=== PATIENT | male | born 1960 | race Caucasian/White ===

== ENCOUNTER 2023-03-29 23:48 | Inpatient (IN) | payer SELFPAY ==
[~2023-03-29] VITALS: Ht 175.3 cm; Wt 64.1 kg
[2023-03-30] MEDS ORDERED: METHYLPREDNISOLONE SOD SUCC 125MG/2ML (ACT-O-VIAL) IV STA (00:43)
[2023-03-30] MEDS ORDERED: IPRATROPIUM BROMIDE (0.02%) 0.5MG/2.5ML NEB HHN STA (00:43)
[2023-03-30] MEDS ORDERED: MAGNESIUM 2 G PREMIX 50 ML IV ONE (00:45)
[2023-03-30] MEDS: ALBUTEROL (0.083%) 2.5MG/3ML NEB HHN SCH ×2 (01:05→01:06)
[2023-03-30 01:07] VITALS: PULSE 79; RESP 20; O2SAT 98
[2023-03-30 01:42] LABS: HEMATOCRIT. 44.7 % (42.0-52.0); HEMOGLOBIN. 15.1 g/dL (14.0-18.0); MEAN CORPUSCULAR HEMOGLOBIN 30.9 pg (28.0-32.0); MEAN CORPUSCULAR VOLUME 91.3 fL (80.0-94.0); MEAN PLATELET VOLUME 7.9 fl (7.4-10.4); PLATELET 377 x1000/uL (130-400); RED BLOOD CELL COUNT 4.89 mill/uL (4.7-6.1); RED CELL DISTRIBUTION WIDTH 13.4 % (11.6-14.6)
[2023-03-30 01:51] LABS: CHLORIDE 109 mEq/L (98-107)
[2023-03-30 05:00] LABS: PLATELET ESTIMATE NORMAL
[2023-03-30] MEDS ORDERED: FUROSEMIDE 40MG/4ML VIAL IVP SCH (10:45)
[2023-03-30 12:00] VITALS: BP 143/71; PULSE 103; RESP 20; TEMP 98
[2023-03-30] MEDS ORDERED: ALBU90AE IH (13:00)
[2023-03-30] MEDS ORDERED: FURO40TA5 PO (13:00)
[2023-03-30] MEDS ORDERED: SERT-422 PO (13:00)
[2023-03-30] MEDS ORDERED: METO-385 PO (13:00)
[2023-03-30] MEDS ORDERED: IPRA3AMP31 IH (13:00)
[2023-03-30] MEDS ORDERED: METH4TAB17 PO (13:00)
[2023-03-30] MEDS ORDERED: ALBU05 IH (13:00)
[2023-03-30] MEDS ORDERED: LISI20TA31 PO (13:00)
[2023-03-30 13:13] VITALS: BP 143/71; PULSE 103; RESP 20; TEMP 98
[2023-03-30] MEDS: THROAT LOZENGES-BENZOCAINE/MENTH/CETYLPYRD CL LOZENGES MM PRN (15:18)
[2023-03-30 16:00] VITALS: BP 123/64; PULSE 109; RESP 18; TEMP 98.1
[2023-03-30] MEDS: PREDNISONE 10MG TABLET PO SCH (18:04)
[2023-03-30 20:00] VITALS: BP 114/65; PULSE 105; RESP 18; TEMP 97.2
[2023-03-31] VITALS (7 sets, daily range): BP systolic 114–141; BP diastolic 57–82; PULSE 86–113; RESP 18–20; TEMP 97.5–100.6; O2SAT 97
[2023-03-31] MEDS ORDERED: ACETAMINOPHEN 325MG TABLET PO PRN (00:15)
[2023-03-31] MEDS: PREDNISONE 10MG TABLET PO SCH ×2 (08:09→16:53)
[2023-03-31] MEDS ORDERED: FUROSEMIDE 20MG/2ML VIAL IVP SCH (09:00)
[2023-03-31] MEDS: THROAT LOZENGES-BENZOCAINE/MENTH/CETYLPYRD CL LOZENGES MM PRN (11:42)
[2023-03-31] MEDS: IPRATROPIUM/ALBUTEROL 0.5-3(2.5)MG/3ML NEB HHN SCH (14:05)
[2023-03-31] MEDS ORDERED: ALBU90AE IH (15:28)
[2023-03-31] MEDS ORDERED: SERT-422 PO (15:28)
[2023-03-31] MEDS ORDERED: MED4 MT (15:28)
[2023-03-31] MEDS ORDERED: METO-385 PO (15:28)
[2023-03-31] MEDS ORDERED: LISI20TA31 PO (15:28)
[2023-03-31] MEDS ORDERED: FURO40TA5 PO (15:28)
[2023-03-31 16:09] LABS: *AMPHETAMINES SCREEN URINE NEGATIVE (NEGATIVE); *BARBITURATES SCREEN URINE NEGATIVE (NEGATIVE); *BENZODIAZEPINES SCREEN URINE NEGATIVE (NEGATIVE); *COCAINE SCREEN URINE NEGATIVE (NEGATIVE); CANNABINOID URINE SCREEN NEGATIVE (NEGATIVE); METHADONE URINE SCREEN NEGATIVE (NEGATIVE); OPIATES URINE SCREEN NEGATIVE (NEGATIVE); PHENCYCLIDINE URINE SCREEN NEGATIVE (NEGATIVE)
== END 2023-03-31 17:45 | disposition home or self-care (01) | DRG 194 ==
LOC: ER 23:48 → 8WST 03-30 05:54 → EDBEDREQTM 03-30 06:05 → EDBEDREQ 03-30 06:05
PROVIDERS: ADMIT Internal Medicine; ATTEND Internal Medicine
DX: I11.0 Hypertensive heart disease with heart failure (principal); J96.01 Acute respiratory failure with hypoxia; S22.41XA Multiple fractures of ribs, right side, initial encounter for closed fracture; C14.0 Malignant neoplasm of pharynx, unspecified; D72.829 Elevated white blood cell count, unspecified; F17.210 Nicotine dependence, cigarettes, uncomplicated; I50.23 Acute on chronic systolic (congestive) heart failure; J43.9 Emphysema, unspecified; X58.XXXA Exposure to other specified factors, initial encounter; Z20.822 Contact with and (suspected) exposure to COVID-19; R74.01 Elevation of levels of liver transaminase levels; Z71.6 Tobacco abuse counseling; Z59.00 Homelessness unspecified; Y93.89 Activity, other specified; Y92.89 Other specified places as the place of occurrence of the external cause; Y99.8 Other external cause status
CPT/HCPCS: 36415; 71045; 80053; 80305; 83605; 83880; 84484; 85025; 87426; 93005; 93306; 93970; 94640; 99291; C9803; J1940; J2930; J3475; J7512

== ENCOUNTER 2023-04-11 09:55 | Inpatient (IN) | payer SELFPAY ==
[~2023-04-11] VITALS: Ht 175.3 cm; Wt 70.3 kg
[~2023-04-11 09:55] MED LIST: ALBU05 IH; ALBU90AE IH; FURO40TA5 PO; IPRA3AMP31 IH; LISI20TA31 PO; MED4 MT; METO-385 PO; SERT-422 PO
[2023-04-11] MEDS ORDERED: IPRATROPIUM BROMIDE (0.02%) 0.5MG/2.5ML NEB HHN STA (10:31)
[2023-04-11] MEDS ORDERED: ALBUTEROL (0.083%) 2.5MG/3ML NEB HHN STA (10:31)
[2023-04-11 10:37] LABS: HEMATOCRIT. 47.2 % (42.0-52.0); HEMOGLOBIN. 15.9 g/dL (14.0-18.0); MEAN CORPUSCULAR HEMOGLOBIN 30.7 pg (28.0-32.0); MEAN CORPUSCULAR VOLUME 90.9 fL (80.0-94.0); MEAN PLATELET VOLUME 7.5 fl (7.4-10.4); PLATELET 494 x1000/uL (130-400); RED BLOOD CELL COUNT 5.19 mill/uL (4.7-6.1); RED CELL DISTRIBUTION WIDTH 13.9 % (11.6-14.6)
[2023-04-11 10:49] LABS: CHLORIDE 109 mEq/L (98-107)
[2023-04-11 11:00] LABS: ETHANOL BLOOD < 10 mg/dL (-10)
[2023-04-11 11:20] VITALS: PULSE 92; RESP 20; O2SAT 99
[2023-04-11] MEDS ORDERED: METHYLPREDNISOLONE SOD SUCC 125MG VIAL IV NR (12:00)
[2023-04-11] MEDS ORDERED: GUAIFENESIN 600MG ER TABLET PO NR (12:30)
[2023-04-11 14:05] VITALS: BP 138/74; PULSE 101; RESP 20; TEMP 97.7
[2023-04-11] MEDS ORDERED: ONDANSETRON HCL 4MG/2ML INJ IV PRN (16:00)
[2023-04-11] MEDS: METHYLPREDNISOLONE SOD SUCC 40MG VIAL IV SCH (16:00)
[2023-04-11 19:56] VITALS: PULSE 112; RESP 16; O2SAT 97
[2023-04-11] MEDS: IPRATROPIUM/ALBUTEROL 0.5-3(2.5)MG/3ML NEB HHN SCH (19:56)
[2023-04-11 20:00] VITALS: BP 138/78; PULSE 113; RESP 21; TEMP 98.2
[2023-04-11] MEDS: THROAT LOZENGES-BENZOCAINE/MENTH/CETYLPYRD CL LOZENGES MM PRN (20:14)
[2023-04-11 23:33] LABS: PLATELET ESTIMATE INCREASED
[2023-04-12] VITALS (9 sets, daily range): BP systolic 106–116; BP diastolic 51–67; PULSE 85–123; RESP 15–24; TEMP 97.5–99.5; O2SAT 92–98
[2023-04-12] MEDS: METHYLPREDNISOLONE SOD SUCC 40MG VIAL IV SCH ×3 (00:22→15:36)
[2023-04-12] MEDS: THROAT LOZENGES-BENZOCAINE/MENTH/CETYLPYRD CL LOZENGES MM PRN ×3 (00:24→17:15)
[2023-04-12] MEDS: IPRATROPIUM/ALBUTEROL 0.5-3(2.5)MG/3ML NEB HHN SCH ×4 (01:32→20:38)
[2023-04-12] MEDS: GUAIFENESIN-DM 200MG-20MG/10ML UDC PO PRN ×3 (03:41→17:15)
[2023-04-12 13:20] LABS: HEMATOCRIT. 44.7 % (42.0-52.0); HEMOGLOBIN. 14.7 g/dL (14.0-18.0); MEAN CORPUSCULAR HEMOGLOBIN 30.1 pg (28.0-32.0); MEAN CORPUSCULAR VOLUME 91.4 fL (80.0-94.0); MEAN PLATELET VOLUME 7.7 fl (7.4-10.4); PLATELET 503 x1000/uL (130-400); RED BLOOD CELL COUNT 4.89 mill/uL (4.7-6.1); RED CELL DISTRIBUTION WIDTH 13.9 % (11.6-14.6)
[2023-04-12 13:26] LABS: CHLORIDE 105 mEq/L (98-107)
[2023-04-12 14:13] LABS: PLATELET ESTIMATE INCREASED
[2023-04-13] VITALS (10 sets, daily range): BP systolic 104–139; BP diastolic 46–71; PULSE 80–102; RESP 17–20; TEMP 97.7–98.6; O2SAT 93
[2023-04-13] MEDS: GUAIFENESIN-DM 200MG-20MG/10ML UDC PO PRN ×3 (00:46→15:31)
[2023-04-13] MEDS: IPRATROPIUM/ALBUTEROL 0.5-3(2.5)MG/3ML NEB HHN SCH ×4 (01:54→21:21)
[2023-04-13] MEDS: THROAT LOZENGES-BENZOCAINE/MENTH/CETYLPYRD CL LOZENGES MM PRN ×2 (08:49→15:31)
[2023-04-13] MEDS: METHYLPREDNISOLONE SOD SUCC 40MG VIAL IV SCH ×4 (08:50→23:50)
[2023-04-13] MEDS ORDERED: METO-385 PO (12:26)
[2023-04-13] MEDS ORDERED: SERT-422 PO (12:26)
[2023-04-13] MEDS ORDERED: ALBU05 IH (12:26)
[2023-04-13] MEDS ORDERED: FURO40TA5 PO (12:26)
[2023-04-13] MEDS ORDERED: IPRA3AMP31 IH (12:26)
[2023-04-13] MEDS ORDERED: ALBU90AE IH (12:26)
[2023-04-13] MEDS ORDERED: MED4 MT (12:26)
[2023-04-13] MEDS ORDERED: LISI20TA31 PO (12:26)
[2023-04-13] MEDS: ACETAMINOPHEN 325MG TABLET PO PRN (20:32)
[2023-04-14] VITALS (10 sets, daily range): BP systolic 123–137; BP diastolic 62–75; PULSE 78–111; RESP 18–20; TEMP 97.3–98.6
[2023-04-14] MEDS: IPRATROPIUM/ALBUTEROL 0.5-3(2.5)MG/3ML NEB HHN SCH ×4 (01:04→21:02)
[2023-04-14] MEDS: METHYLPREDNISOLONE SOD SUCC 40MG VIAL IV SCH ×3 (10:06→23:43)
[2023-04-14] MEDS: GUAIFENESIN-DM 200MG-20MG/10ML UDC PO PRN (21:12)
[2023-04-14] MEDS: THROAT LOZENGES-BENZOCAINE/MENTH/CETYLPYRD CL LOZENGES MM PRN (21:12)
[2023-04-14] MEDS: ACETAMINOPHEN 325MG TABLET PO PRN (21:12)
[2023-04-15] VITALS (9 sets, daily range): BP systolic 108–150; BP diastolic 61–80; PULSE 63–117; RESP 16–20; TEMP 97.5–97.9; O2SAT 94–96
[2023-04-15] MEDS: IPRATROPIUM/ALBUTEROL 0.5-3(2.5)MG/3ML NEB HHN SCH ×3 (01:01→13:59)
[2023-04-15] MEDS: METHYLPREDNISOLONE SOD SUCC 40MG VIAL IV SCH ×2 (08:21→16:22)
== END 2023-04-15 17:30 | disposition home or self-care (01) | DRG 140 ==
LOC: ER 09:55 → 7WST 13:36 → EDBEDREQTM 13:48 → EDBEDREQ 13:48
PROVIDERS: ADMIT Internal Medicine; ATTEND Internal Medicine
DX: J44.1 Chronic obstructive pulmonary disease with (acute) exacerbation (principal); I11.0 Hypertensive heart disease with heart failure; I50.9 Heart failure, unspecified; D72.829 Elevated white blood cell count, unspecified; Z20.822 Contact with and (suspected) exposure to COVID-19; F17.210 Nicotine dependence, cigarettes, uncomplicated; R74.01 Elevation of levels of liver transaminase levels; Z79.899 Other long term (current) drug therapy
CPT/HCPCS: 36415; 71045; 76700; 80053; 80076; 80320; 83880; 84484; 85025; 87426; 93005; 94640; 94664; 99285; C9803; J2920; J2930; G0480